=== PATIENT | male | born 1955 | race Asian ===

== ENCOUNTER 2016-07-30 06:56 | Day surgery (SDC) | payer OTHER ==
[~2016-07-30] VITALS: Ht 167.6 cm; Wt 62.0 kg
[2016-07-30 08:10] VITALS: Ht 167.6 cm; Wt 62.0 kg
[2016-07-30] MEDS ORDERED: OMEP20CA16 PO (08:21)
[2016-07-30 08:40] VITALS: BP 152/88; PULSE 68; RESP 18
[2016-07-30] MEDS ORDERED: MIDAZOLAM 1 MG/ML 2 ML INJ ONE ×2 (09:17)
[2016-07-30] MEDS ORDERED: FENTAnyl 50 MCG/ML VIAL ONE (09:17)
[2016-07-30 09:28] VITALS: BP 111/76; PULSE 69; RESP 18
--- NOTE | 2016-07-30 11:05 | GILP ---
DATE OF PROCEDURE: NAME OF PROCEDURES: 1. Esophagogastroduodenoscopy and biopsy. 2. Colonoscopy and biopsy. SURGEON: Celso Champion MD PREOPERATIVE DIAGNOSES: 1. Abdominal pain. 2. Chronic heartburn. 3. Chronic diarrhea. POSTOPERATIVE DIAGNOSES: 1. Gastritis. Gastric mucosal biopsies were taken for Helicobacter pylori test. 2. Colonoscopy all the way to the cecum. 3. Small internal hemorrhoids. 4. Random biopsies were taken to rule out microscopic colitis. INDICATION FOR THE PROCEDURE: Mr. Shashank Church is a 60-year-old male patient who had upper abdominal pain and chronic heartburn, not responding to therapy. Patient also had chronic diarrhea. The sandra ent was scheduled for endoscopy and colonoscopy for further evaluation. The procedures and possible complications are well explained to the patient, he understood and conse nted to the procedure. DESCRIPTION OF PROCEDURE: Under the influence of fentanyl and Versed, the gastroscope was carefully introduced into the esophagus and under direct vision, it was advanced to the stomach and through t he pylorus into the duodenal bulb and descending duodenum. FINDINGS: ESOPHAGUS: The patient had gastroesophageal reflux disease, but the esophageal mucosa was normal. STOMACH: The patient had gastritis with erosions. Gastric mucosal biopsies were taken for H. pylor i test. DUODENUM: Normal. The colonoscope was carefully introduced in the rectum and under direct vision, it was advanced all the way to the cecum and through the ileocecal valve into the terminal ileum. FINDINGS: The terminal ileum was normal. The colonic mucosa was normal. Random biopsies were take n to rule out microscopic colitis. The patient was noted to have small internal hemorrhoids. He tolerated the procedures very well and there was no complication from the procedures. At the end of the procedures, he was awake with stable vital signs and he was discharged home to the care of h is family. IMPRESSION: Please see postoperative diagnosis. PLAN: 1. Continue omeprazole in the a.m. 2. Add Zantac 300 mg p.o. at bedtime. 3. Bentyl 10 mg p.o. t.i.d. p.r.n. for diarrhea or abdominal pain. 4. Await histopathology reports. Dictated By: CELSO CALLES/JOSE Conf#: [id number] DID#: [id number]
--- NOTE | 2016-07-31 06:19 | CONS ---
DATE OF ADMISSION: 07/30/2016 DATE OF CONSULTATION: TYPE OF CONSULTATION: Preoperative gastroenterology. I thank you very much for this kind referral. HISTORY OF PRESENT ILLNESS: Mr. Shashank Church is a 60-year-old male patient who has been referred to [facility] for further evaluation of abdominal pain and chronic heartburn not responding to therapy. There i s no past history of peptic ulcer disease. He is not taking any nonsteroidal anti-inflammatory agen ts. His appetite has been good and he is not losing any weight. There is no history of gallstones. He does not have any fever, chills, or jaundice. There is no history of liver disease. The patie nt also complains of chronic diarrhea. There is no history of rectal bleeding. There is no past hi story of inflammatory bowel disease or colon neoplasm. The patient never had screening colonoscopy. He is not a hypertensive or diabetic. He does not have any heart disease or lung problem. There is no history of kidney disease. SOCIAL HISTORY: He is a nonsmoker. He does not abuse alcohol. FAMILY HISTORY: Negative for gastrointestinal tract neoplasm. ALLERGIES: THERE IS NO HISTORY OF SIGNIFICANT DRUG ALLERGY. MEDICATIONS: Omeprazole. PHYSICAL EXAMINATION: GENERAL: He is 5 feet 6 inches tall and he weighs 140 pounds. HEART: Examination of the heart reveals normal first and second heart sounds. LUNGS: Clear. ABDOMEN: Soft without any distention. Liver and spleen are not palpable. There are no masses. Th ere is no focal tenderness. Normal bowel sounds are heard. CENTRAL NERVOUS SYSTEM: Does not reveal any focal neurological deficit. IMPRESSION: 1. Upper abdominal pain and chronic heartburn not responding to therapy with omeprazole. 2. Chronic diarrhea. 3. The patient never had screening colonoscopy. PLAN: 1. Continue omeprazole. 2. Endoscopy and colonoscopy for further evaluation. The procedures and possible complications are well explained to the patient. He understands and con sents to the procedures. I thank you once again. With warmest personal regards, Dictated By: NORBERTO CALLES/NTS Conf#: [id number] DID#: [id number] CC: NORBERTO TARANGO MD;*EndCC*
== END 2016-07-30 09:43 | disposition home or self-care (01) ==
LOC: GIL 06:56
PROVIDERS: ATTEND Internal Medicine Gastroenterology
DX: K64.8 Other hemorrhoids (principal); K29.70 Gastritis, unspecified, without bleeding
CPT/HCPCS: 43239; 45380; 87081; 88305; J2250; J3010; Z7610